=== PATIENT | male | born 1975 | race Caucasian/White ===

== ENCOUNTER → 2016-11-23 | Outpatient (CLI) | payer MEDICAID ==
[~2016-11-23] MED LIST: ALPRAZOLAM; AMOXICILLIN 8751 TAB PO; CARAFATE 1GM1 G PO; FERROUS SULFATE27 MG PO; FUROSEMIDE; LORTAB 10/500 51 TAB PO; LORTAB 5/500 501 TAB PO; MULTIPLE VITAMI1 TAB PO; MVI; NO HOME MEDICATIONS; OXYCODONE HCL5 MG PO; PEPCID 20MG TAB20 MG PO; PERCOCET 325 MG1 TA2 PO; PERCOCET 325 MG1 TA3 PO; PHENERGAN 25 TA25 MG PO; PRILOSEC 20MG20 MG PO; PROTONIX 40MG T40 MG PO; ROXICODONE 55 MG/TAB PO; SOMA 350MG350 MG/TAB PO; TYLENOL 325MG325 MG PO; ZANTAC 7575 MG PO; ZOFRAN 4MG T4 MG/TAB PO; antiinflammatory
== END ==
LOC: COL.RAD 07:30
DX: R10.13 Epigastric pain (principal); K44.9 Diaphragmatic hernia without obstruction or gangrene; Z90.49 Acquired absence of other specified parts of digestive tract
CPT/HCPCS: A9585

== ENCOUNTER → 2017-02-07 | Outpatient (CLI) | payer MEDICAID | LOC: MHCPAIN 11:18 | DX: G89.29 Other chronic pain (principal); M79.2 Neuralgia and neuritis, unspecified; R10.9 Unspecified abdominal pain | CPT/HCPCS: G0463 ==

== ENCOUNTER → 2017-04-09 | Outpatient (CLI) | payer MEDICAID | LOC: MHCPAIN 08:00 | DX: G89.29 Other chronic pain (principal); R10.9 Unspecified abdominal pain; M79.2 Neuralgia and neuritis, unspecified; Z98.84 Bariatric surgery status | CPT/HCPCS: G0463 ==

== ENCOUNTER → 2017-07-24 | Outpatient (CLI) | payer MEDICAID | LOC: MHCPAIN 08:55 | DX: G89.29 Other chronic pain (principal); M79.2 Neuralgia and neuritis, unspecified; M79.1 Myalgia; R10.9 Unspecified abdominal pain; F17.220 Nicotine dependence, chewing tobacco, uncomplicated | CPT/HCPCS: G0463 ==

== ENCOUNTER → 2017-11-05 | Outpatient (CLI) | payer MEDICAID | LOC: MHCPAIN 08:55 | DX: G89.29 Other chronic pain (principal); M79.2 Neuralgia and neuritis, unspecified; M79.1 Myalgia | CPT/HCPCS: G0463 ==

== ENCOUNTER → 2018-02-04 | Outpatient (CLI) | payer MEDICAID | LOC: MHCPAIN 09:01 | DX: G89.29 Other chronic pain (principal); M79.2 Neuralgia and neuritis, unspecified; M79.1 Myalgia | CPT/HCPCS: G0463 ==

== ENCOUNTER → 2018-08-07 | Outpatient (CLI) | payer MEDICAID, MEDICARE | LOC: MHCPAIN 08:15 | DX: G89.29 Other chronic pain (principal); M79.2 Neuralgia and neuritis, unspecified; R10.817 Generalized abdominal tenderness | CPT/HCPCS: G0463 ==

== ENCOUNTER 2018-11-18 23:30 | Inpatient (IN) | payer MEDICARE, MEDICAID ==
[~2018-11-18] VITALS: Ht 180.3 cm; Wt 154.9 kg
[2018-11-19] VITALS (348 sets, daily range): BP systolic 119–138; BP diastolic 77–94; PULSE 94–110; TEMP 98.8–100.4; O2SAT 63–100
--- NOTE | 2018-11-19 01:02 | NUR ---
PATIENT WAS EXPERIENCING SEVER RESPIRATORY DISTRESS AT THE TIME OF MY ASSESSMENT SO I WAS UNABLE TO ASK PATIENT ALL THE ADMISSION QUESTIONS. PATIENTS RESPIRATION RATE SHOT UP TO THE 40'S WHEN ATTEMPTING TO ASK QUESTIONS. WILL COME BACK AT A LATER TIME ONCE PATIENTS RESPIRATION RATE IS UNDER CONTROL AND HE IS ABLE TO COMMUNICATE WITHOUT BEING IN STRESS.
[2018-11-19] MEDS ORDERED: VITAMIN B125000 MCG PO (01:57)
[2018-11-19] MEDS ORDERED: NATURAL IRON65 MG PO (01:57)
[2018-11-19] MEDS ORDERED: MULTIPLE VITAMI1 CAP PO (01:58)
[2018-11-19] MEDS ORDERED: NEURONTIN800 MG/TAB PO ×2 (01:58)
[2018-11-19] MEDS ORDERED: ZESTRIL 20MG TA20 MG PO (01:58)
[2018-11-19] MEDS ORDERED: PRIL40 PO (01:59)
[2018-11-19] MEDS ORDERED: CARAFATE 1GM1 G PO (01:59)
[2018-11-19] MEDS ORDERED: LIORESAL 1010 MG/TAB PO (01:59)
[2018-11-19] MEDS ORDERED: ZANTAC 150MG T150 MG PO (02:00)
[2018-11-19] MEDS ORDERED: REQUIP 1MG T1 MG/TAB PO (02:00)
[2018-11-19] MEDS ORDERED: RESTORIL 1515 MG/CAP PO (02:00)
[2018-11-19 02:10] LABS: ARTERIAL BLD GAS O2 SATURATION 99.4 % (92-100); ARTERIAL BLOOD GAS BASE EXCESS -3.3 (-2-2); ARTERIAL BLOOD GAS HCO3 23.5 meq/L (22-26); ARTERIAL BLOOD GAS PCO2 48.8 mmHg (35-45)
[2018-11-19 02:11] LABS: ARTERIAL BLOOD GAS PO2 300.8 mmHg (80-100)
[2018-11-19 03:17] LABS: HEMATOCRIT 40.6 % (42.0-52.0); MEAN CELL VOLUME 105 fl (80.0-100.0); MEAN CORPUSCULAR HEMOGLOBIN 34 pg (27.0-31.0); MEAN CORPUSCULAR HGB CONC 32 g/dl (33.0-37.0); MEAN PLATELET VOLUME 9.2 fl (7.4-10.4); PLATELET COUNT 252 K/mm3 (130-400); RED BLOOD COUNT 3.87 M/mm3 (4.20-5.60); REDCELL DISTRIBUTION WIDTH-CV 12.4 % (11.5-14.5)
[2018-11-19 03:31] LABS: ALANINE AMINOTRANSFERASE 8 U/L (21-72); ALBUMIN 3.6 gm/dL (3.5-5.0); ALKALINE PHOSPHATASE 72 U/L (50-136); ANION GAP 8 mmol/L (7-16); AST,SGOT 19 U/L (15-37); BILIRUBIN,TOTAL 0.7 mg/dL (0.0-1.0); BLOOD UREA NITROGEN 11 mg/dL (9-20); CALCIUM 8.5 mg/dL (8.4-10.2); CARBON DIOXIDE 22 mmol/L (22-30); CHLORIDE 106 mmol/L (98-107); CREATININE, serum 0.64 (0.66-1.25); GLUCOSE 130 mg/dL (74-106); MAGNESIUM 1.7 mg/dL (1.6-2.3); SODIUM 136 mmol/L (137-145); TOTAL PROTEIN 6.8 gm/dL (6.4-8.2)
--- NOTE | 2018-11-19 03:38 | NUR ---
CALLED PATIENTS AND ASKED IF SHE WOULD BRING THE CD OF THE PATIENTS CT SCAN THAT WAS PERFORMED AT [facility].
[2018-11-19 03:43] LABS: TROPONIN-I < 0.012 ng/mL (0.000-0.035)
[2018-11-19 03:45] LABS: BAND 23 % (0-10); HYPOCHROMIA 1+; LYMPHOCYTE 5 % (20.0-51.0); NEUTROPHILS 66 % (42.0-75.2); PLATELET ESTIMATE NORMAL (NORMAL)
[2018-11-19 03:47] LABS: TEAR DROP CELLS 1+
[2018-11-19 06:09] LABS: ARTERIAL BLD GAS O2 SATURATION 97.9 % (92-100); ARTERIAL BLD GAS TCO2 CT 22.7; ARTERIAL BLOOD GAS BASE EXCESS -4.9 (-2-2); ARTERIAL BLOOD GAS HCO3 21.4 meq/L (22-26); ARTERIAL BLOOD GAS PCO2 44.2 mmHg (35-45); ARTERIAL BLOOD GAS PO2 106.4 mmHg (80-100)
--- NOTE | 2018-11-19 06:31 | NUR ---
TRIED TO HAVE PATIENT URINATE IN THE URINAL. PATIENT WAS UNABLE TO AT THIS TIME. TOLD PATIENT WE WOULD TRY AGAIN IN AN HOUR OR TWO AND THEN IF HE STILL WAS UNABLE TO WE WOULD TRY TO DO A STRAIGHT CATH TO COLLECT URINE TO SEND DOWN FOR THE UA.
--- NOTE | 2018-11-19 07:00 | NUR ---
Bedside shift report received from TENZIN Vergara. Patient is awake, alert, sitting up in bed. Patient is currently on BiPAP and tolerating well. Patient complains of ride sided thoracic pain located under the armpit along the lower ribcage area. Patient is stable with no other complaints or concerns at this time. Full assessment completed and documented. Call light placed within reach. Bed in lowest position. Personal items at bedside within reach.
--- NOTE | 2018-11-19 07:19 | NUR ---
GAVE REPORT TO TENZIN PERAZA.
--- NOTE | 2018-11-19 09:00 | NUR ---
Dr. Oreilly at bedside and assessing patient's RLL via ultrasound for possible thoracentesis.
--- NOTE | 2018-11-19 09:20 | NUR ---
Patient transferred to CT via bed by Isabel RN and Matteo RT with no complications. Patient transferred to CT on BiPAP and bedside monitor. On arrival, patient is successfully transferred to CT stretcher, but then becomes nauseous and attempts to vomit. Dr. Oreilly is notified of patient's nausea and order for Zofran given via telephone. Zofran administered per physicians order. CT scan successfully completed. Patient is transferred back to ICU bed 7 with no complications.
[2018-11-19 10:12] LABS: COLLECTION METHOD CLEAN CATCH
[2018-11-19 10:20] LABS: MUCOUS Present /lpf; PH 5 (5-8); URINE APPEARANCE Hazy; URINE BACTERIA Rare /hpf; URINE BILIRUBIN Negative (NEGATIVE); URINE BLOOD Negative (NEGATIVE); URINE COLOR Yellow; URINE GLUCOSE Negative (NEGATIVE); URINE KETONE Negative (NEGATIVE); URINE LEUKOCYTE ESTERASE 1+ (NEGATIVE); URINE NITRATE Negative (NEGATIVE); URINE PROTEIN(semi-quant) Negative (NEGATIVE); URINE RBC 0-2 /hpf; URINE UROBILINOGEN Negative (NEGATIVE)
[2018-11-19 10:42] LABS: INR 1.2 (0.8-3.0); PROTHROMBIN TIME 13.6 SECONDS (9.7-12.8)
[2018-11-19 10:49] LABS: TRICYCLIC ANTIDEPRESS URINE NEGATIVE
--- NOTE | 2018-11-19 11:00 | NUR ---
Incentive spirometry placed at bedside per Dr. Oreilly's orders.
--- NOTE | 2018-11-19 14:35 | NUR ---
Patient disconnected from IV fluids and COMMERCIAL REAL ESTATE SALES MANAGER pump at this time to go to OR. Larissa from OR at bedside to retrieve patient. Patient is disconnected from bedside monitor. Signed informed consent placed on the front of the chart and chart on patient's bed. At this time Larissa successfully transports patient to OR with no complications. Patient's , Emily, is notified of patient's transfer to OR at this time.
--- NOTE | 2018-11-19 16:54 | NUR ---
PATIENT PLACED ON BIPAP IN PACU. 21/02 70% RR 32 SPO2 97%
--- NOTE | 2018-11-19 17:38 | NUR ---
Patient returned from OR by 2 RNs with no complications. Patient hooked up to ICU monitor. Vital signs stable, patient in no apparent distress. There is a chest tube now present to right side with serosanguinous drainage in atrium. Chest tube site assessed, dressing is clean, dry, and intact. COMPOUND COATING MACHINE OFFBEARER pump restarted per physician orders. Call light placed within reach. Bed lowered to lowest position. Patient does not have any complaints or concerns at this time.
--- NOTE | 2018-11-19 19:30 | NUR ---
Bedside shift report given to TENZIN Vergara. Patient is sitting in bed with no complaints or concerns at this time. Patient has his MANAGER INTERN pump and call light within reach. All personal items also within reach. MANAGER INTERN pump assessed and reviewed against MAR with TENZIN Vergara at this time. Bed in lowest position. Patient's at bedside during report.
--- NOTE | 2018-11-19 19:40 | NUR ---
RECEIVED REPORT FROM TENZIN PERAZA. PATIENT AND PARTICIPATED IN BEDSIDE REPORT. MEDICATIONS, LINEES, AND TUBES VARIFIED. WILL CONTINUE TO MONITOR PATIENT THROUGHT THE SHIFT.
[2018-11-19 22:08] LABS: TOTAL PROTEIN,PLEURAL FLUID 5.2 gm/dL
[2018-11-20] VITALS (803 sets, daily range): BP systolic 101–119; BP diastolic 55–81; PULSE 75–118; TEMP 97.5–102; O2SAT 62–100
[2018-11-20 05:46] LABS: BASO # 0.1 (0.0-0.2); BASO % 0.2 % (0.0-2.0); GRAN # 21.7 (1.4-6.5); GRAN % 86.8 % (42.2-75.2); HEMOGLOBIN 11.2 g/dl (13.5-18.0); LYMPH # 1.5 (1.2-3.4); LYMPH % 5.9 % (20.0-51.0); MEAN CELL VOLUME 109 fl (80.0-100.0); MEAN CORPUSCULAR HEMOGLOBIN 34 pg (27.0-31.0); MEAN CORPUSCULAR HGB CONC 31 g/dl (33.0-37.0); MEAN PLATELET VOLUME 9.1 fl (7.4-10.4); MONO # 1.5 (0.1-0.6); MONO % 6.1 % (1.7-9.3); PLATELET COUNT 219 K/mm3 (130-400); RED BLOOD COUNT 3.31 M/mm3 (4.20-5.60); REDCELL DISTRIBUTION WIDTH-CV 12.5 % (11.5-14.5)
[2018-11-20 05:49] LABS: HEMATOCRIT 36.1 % (42.0-52.0)
--- NOTE | 2018-11-20 05:54 | NUR ---
CALLED EICU AND REPORTED THE CRITICAL WBC COUNT OF 24.9 TO NURSE CHOUDHARY.
[2018-11-20 05:56] LABS: ALANINE AMINOTRANSFERASE < 6 U/L (21-72); ALBUMIN 3.2 gm/dL (3.5-5.0); ALKALINE PHOSPHATASE 69 U/L (50-136); ANION GAP 9 mmol/L (7-16); AST,SGOT 16 U/L (15-37); BILIRUBIN,TOTAL 0.5 mg/dL (0.0-1.0); BLOOD UREA NITROGEN 20 mg/dL (9-20); CALCIUM 8.4 mg/dL (8.4-10.2); CARBON DIOXIDE 21 mmol/L (22-30); CHLORIDE 105 mmol/L (98-107); CREATININE, serum 1.04 (0.66-1.25); GLUCOSE 144 mg/dL (74-106); SODIUM 136 mmol/L (137-145); TOTAL PROTEIN 6.4 gm/dL (6.4-8.2)
--- NOTE | 2018-11-20 08:34 | NUR ---
gave report to bhumika bañuelos.
--- NOTE | 2018-11-20 10:42 | NUR ---
SW met with patient to discuss discharge planning. Patient lives independently at home with his and plans to return there upon discharge. Patient goes to [facility] in [place] for primary care and he obtains prescriptions from [facility] in . Patient uses a CPAP at home but no other DME is reported. Patient also does not use any home health services. Patient is interested completing a DPOA-HC. SW reported that she can provide those forms, but patient would like to speak with his before signing anything. SW will continue to follow to assist with discharge needs.
--- NOTE | 2018-11-20 15:30 | NUR ---
Pt Resting in bed, repositioning independenlty, VSS, remains on PAPERHANGER PIPE pump, but states he has not been using it much due to a deacrease in pain. LR 500 mls given this AM. Pt witfe at bedside. Pt able to eat some breakfast. CT remains in place draining serous liquid. No airleak noted. ID consulted and called today. Will continue to monitor and update providers as needed.
--- NOTE | 2018-11-20 18:38 | NUR ---
After Hours TOP STITCHER Angela, called re; pt temp 101.8, Rn wanting tylenol. TOP STITCHER wants to review pt labs and assess need. Will continue to monitor.
--- NOTE | 2018-11-20 19:35 | NUR ---
Bedside report received from TENZIN Huston. Chest tube site assessed. All lines and medications reviewed.
--- NOTE | 2018-11-20 20:00 | NUR ---
Assessment complete. Patient is awake watching TV. He is alert and oriented x4. Patient's HR is tachycardic into the 130's. Patient has been refusing to push the button for his SHIRRING MACHINE OPERATOR pump. Educated patient that we monitor how much medication he is getting and he will gradually be weaned off of it, so addiction is not a concern right now, but his heart rate is. Spoke with STEVE Miller about his pain and she stated that if he does not push the button himself, we will need to start him on a basal rate. Explained this to the patient. He states he will try to use the button more when he is in pain. Assessment reveals coarse sounds in the right lung with insp/exsp wheezes. Left lung is clear. Bases bilaterally are diminished. HR is tachycardic, which decreases when resting. Bowel sounds are active. Assisted the patient to stand to urinate. Patient had urinated, but dropped the urinal, so was unable to get a number for output; charted as unmeasured void. Patient's chest tube site is clear. Dressing and tape are intact. Tube is clear of kinks. Drainage is serosanguinous with some small clots. Patient has no further needs at this time. Will continue to monitor. Call light within reach.
[2018-11-21] VITALS (931 sets, daily range): BP systolic 105–125; BP diastolic 61–100; PULSE 80–101; TEMP 98.1–101.1; O2SAT 74–100
--- NOTE | 2018-11-21 | NUR ---
Patient asleep at this time. Awakens to name. Patient is on BiPAP. RT Matt had turned his FIO2 up to 45% due to frequent de-sats into the low 80's from his snoring. Assessment complete. Patient's right upper and middle lobes of the lung have expiratory wheezes with all right garcia also being coarse. Left lung remains clear and both lungs have diminished bases. Patient's tachycardia has improved since he started using his MANAGER MOTOR more. All other findings remain the same. Patient is only having mild pain in that right side. No further needs at this time. Will continue to monitor. Call light within reach.
--- NOTE | 2018-11-21 04:00 | NUR ---
Assessment complete. Patient is resting on the BiPAP. Patient is very tired, but arousable. Patient does not stay awake for long, but does follow commands, but quickly falls asleep again. Assessment reveals coarse lung sounds in the right lung, diminished bases bilaterally, and left lung clear. All other findings remain the same as previous exam. Only complains of mild pain at the chest tube site. No further needs at this time. Will continue to monitor. Call light within reach.
--- NOTE | 2018-11-21 04:45 | NUR ---
Dressing change performed at Chest tube site.
[2018-11-21 05:14] LABS: BASO % 0.2 % (0.0-2.0); EOS # 0.1 (0.0-0.7); GRAN # 10.2 (1.4-6.5); HEMOGLOBIN 10.2 g/dl (13.5-18.0); LYMPH # 1.3 (1.2-3.4); LYMPH % 10.1 % (20.0-51.0); MEAN CELL VOLUME 110 fl (80.0-100.0); MEAN CORPUSCULAR HEMOGLOBIN 33 pg (27.0-31.0); MEAN CORPUSCULAR HGB CONC 30 g/dl (33.0-37.0); MEAN PLATELET VOLUME 9.1 fl (7.4-10.4); MONO # 1.2 (0.1-0.6); PLATELET COUNT 235 K/mm3 (130-400); RED BLOOD COUNT 3.07 M/mm3 (4.20-5.60); REDCELL DISTRIBUTION WIDTH-CV 12.5 % (11.5-14.5)
[2018-11-21 05:16] LABS: HEMATOCRIT 33.7 % (42.0-52.0)
[2018-11-21 05:34] LABS: CALCIUM 8.6 mg/dL (8.4-10.2); CREATININE, serum 1.07 (0.66-1.25); POTASSIUM 4.9 mmol/L (3.4-5.0)
--- NOTE | 2018-11-21 06:45 | NUR ---
Dr. Oreilly here to see patient at this time. Patient is lethargic, opens eyes and answers simple questions, but quickly falls back asleep.
--- NOTE | 2018-11-21 07:12 | NUR ---
Bedside report given to TENZIN Britt. All lines and tubes reviewed. Transfer of care at this time.
--- NOTE | 2018-11-21 07:12 | NUR ---
Bedside report recieved from TENZIN Arvizu. Patient chest tube patent to 20cm suction without leak noted in water seal. Dressing CDI with positive serosanguinous drainage noted in tubing. CATHERINE PICC with LR infusing at 100ml/hr and morphine BOG CUTTER y-sited. BOG CUTTER settings reviewed. LAC peripheral site locked and uncomplicated. Patient with urine saturated chucks. BiPap in place as ordered. Patient squirming in bed and reports urgency to urinate with retention. See physisian notification and corresponding interventions. Bed change completed at this time. Patient changed to NC O2 after AM cares. Bed left in low and locked position, rails up x3, bed alarm armed, call light and BOG CUTTER button within reach. Patient denies pain at this time. Care assumed.
--- NOTE | 2018-11-21 09:40 | NUR ---
Dr. Hurtado rounds at this time. Orders as entered CPOE. POC discussed with patient and to include remaining in ICU today secondary to fevers over prior 24 hour period. Care ongoing.
--- NOTE | 2018-11-21 14:25 | NUR ---
1425: Patient with tachycardia noted on monitor. Upon entering patient room assessment includes patient minimally and inconsistently responsive to verbal stimuli, consistently localizes pain and says "Ow" and "what" when sternal rub applied, JASKARAN, inconsistent response to command obidience with appropriate response 2/4 attempts, chest tube to suction with minimal fluctuations noted to water seal chamber, chest tube without kinks or twists and positive serous output noted, NC O2 removed and BiPap replaced and previous settings, Elma WILSON called and request made and granted for ABG, RT notified of new order. 1430: This nurse verbally prompts patient to answer with no response noted. This RN states I will need to rub your chest again to see if you respond (sternal rub) patient opens eyes and says "what?". However, beyond squeezing hands when prompted patient does not follow commands or answer questions when prompted. 1437: Reji, RT at bedside for ABG. She tells patient to expect a poke to right wrist. Prior to punture patient retracts arm. This RN holds for ABG draw. Patient is uncooperative. 1451: STEVE Wills notified of normal ABG results. No further orders recieved. Will keep BiPap in place. Care ongoing.
--- NOTE | 2018-11-21 14:30 | NUR ---
Dr. Monzon rounds on patient at this time. VORB to put chest tube to water seal.
[2018-11-21 14:50] LABS: ARTERIAL BLOOD GAS HCO3 23.3 meq/L (22-26); ARTERIAL BLOOD GAS PCO2 41.3 mmHg (35-45); ARTERIAL BLOOD GAS PO2 86.3 mmHg (80-100); ARTERIAL BLOOD GAS pH 7.37 (7.35-7.45)
[2018-11-21 14:51] LABS: ARTERIAL BLD GAS O2 SATURATION 96.4 % (92-100); ARTERIAL BLOOD GAS BASE EXCESS -1.9 (-2-2)
--- NOTE | 2018-11-21 15:02 | NUR ---
Dr. Hooks calls and is provided update. No new orders recieved.
--- NOTE | 2018-11-21 16:38 | NUR ---
Provider updated to continued mental status changes to include: Patient opens eyes to loud verbal stimuli and painful stimuli, no appropriate command follows, when asked to sip water for meds patient chews on straw and blows bubbles in cup. Percieved stregth equal bilaterally. JASKARAN. VSS.Request made for provider to re-assess patient and consider imaging of head and/or psych consult. STAFF NUCLEAR WEAPONS OFFICER states she will be down shortly.
--- NOTE | 2018-11-21 16:59 | NUR ---
Dr. Hurtado at bedside to re-assess patient. Patient responsive at this time to verbal stimulus by MD. Accurately reports home address when prompted, re-states home address when asked both birthday and current year. Neuro checks ordered Q2H. Care ongoing.
--- NOTE | 2018-11-21 17:25 | NUR ---
Patient transported to CT by this RN on transport monitor and 6LO2 per NC in place. CT of head completed without complication.
--- NOTE | 2018-11-21 17:50 | NUR ---
Patient returned to ICU [address] of head as ordered. Returned to in room monitor. Temp 100.5 VSS otherwise. Care ongoing.
--- NOTE | 2018-11-21 19:15 | NUR ---
Report provided to TENZIN Arvizu. Chest tube, da silva, and IV access all assessed and without complication. Care turned over.
--- NOTE | 2018-11-21 19:15 | NUR ---
Bedside report received from TENZIN Britt. All lines and tubes reviewed. Chest tube dressing remains intact. Transfer of care at this time.
--- NOTE | 2018-11-21 20:00 | NUR ---
Assessment complete. Patient resting in bed on BiPAP. No signs of distress. Patient opens eyes to name, but does not look towards sound or make eye contact, patient just stares straight ahead. Patient does follow commands to squeeze his hands, asset accountant are strong and equal. He does not follow multiple commands given. Patient is unable to answer any questions about where he is or other orientation questions, he closes his eyes and doesnt respond. Assessment reveals coarse sounds in the right lung with clear left lung and diminished bases bilaterally. HR rhythm regular and normal sounds heard. Bowel sounds are active. All other findings remain WNL. Chest tube dressing remains clean and dry. There is a small amount of serous fluid in the tubing. When asked if he is pain, patient just states "no" without opening his eyes. Patient is not currently showing any signs of pain. No further needs at this time. Will continue to monitor. Call light within reach.
--- NOTE | 2018-11-21 20:20 | NUR ---
Patient woken up to take tylenol at this time for fever of 101.1. BiPAP mask removed and patient is alert and awake, but does not make eye contact or look at this nurse. Patient takes a sip of water, then pills with lots of coaxing for him to open his mouth. Needs constant remainders of what he is doing. Patient swallows pills but then coughs afterwards. Stayed with patient for several minutes afterwards to ensure he did swallow pills. BiPAP mask replaced. Will notify [facility] that patient will not be able to take all of his other oral PM meds for risk of aspiration. Will see if alternate routes can be taken.
[2018-11-22] VITALS (1049 sets, daily range): BP systolic 138–170; BP diastolic 86–98; PULSE 83–103; TEMP 97.9–99.6; O2SAT 82–100
--- NOTE | 2018-11-22 | NUR ---
Assessment complete. Patient asleep at this time on BiPAP. Awakens to name. Follows commands to squeeze hands, but quickly falls asleep again. Assessment reveals no changes from previous exam. Patient does not stay awake long enough to answer questions. Patient still does not make eye contact. Patient states he is not having any pain. No further needs at this time. Will continue to monitor. Call light within reach.
--- NOTE | 2018-11-22 04:00 | NUR ---
Patient is much more alert than he has been previously in the shift. Patient does not appear to be in any distress, but is coughing up more sputum. Emesis bag provided for sputum. Patient does make eye contact now. Patient now rates pain a 7/10. Reinforced teaching of pushing the DOOR PATCHER button when in pain. Made sure patient knows where his button is. Assessment complete. No physical changes from previous exam. Vitals remain stable. No further needs at this time. Patient remains on BiPAP. Will continue to monitor. Call light within reach.
--- NOTE | 2018-11-22 05:08 | NUR ---
Patient starts screaming in frustration at this time. He tears off BiPAP mask and throws it across the room. Patient placed back on NC at 4L with ETCO2. Patient is very alert now. Patient does not know where he is, when asked a question he really tries to search for the words to answer, but cant come up with them and gets very frustrated. Stayed with the patient until he calmed down. Reinforced teaching about VEST BACKER pump button. He confirms understanding. Will continue to monitor.
[2018-11-22 05:10] LABS: BASO % 0.3 % (0.0-2.0); EOS # 0.1 (0.0-0.7); EOS % 0.5 % (0-4.0); GRAN % 79.2 % (42.2-75.2); HEMOGLOBIN 10.4 g/dl (13.5-18.0); LYMPH # 1.2 (1.2-3.4); LYMPH % 10.5 % (20.0-51.0); MEAN CELL VOLUME 106 fl (80.0-100.0); MEAN CORPUSCULAR HEMOGLOBIN 34 pg (27.0-31.0); MEAN CORPUSCULAR HGB CONC 32 g/dl (33.0-37.0); MONO % 8.8 % (1.7-9.3); PLATELET COUNT 210 K/mm3 (130-400); RED BLOOD COUNT 3.09 M/mm3 (4.20-5.60); REDCELL DISTRIBUTION WIDTH-CV 12.1 % (11.5-14.5)
[2018-11-22 05:11] LABS: HEMATOCRIT 32.7 % (42.0-52.0)
[2018-11-22 05:24] LABS: CALCIUM 8.7 mg/dL (8.4-10.2); CREATININE, serum 0.79 (0.66-1.25); MAGNESIUM 1.9 mg/dL (1.6-2.3); POTASSIUM 4.1 mmol/L (3.4-5.0)
--- NOTE | 2018-11-22 06:00 | NUR ---
Patient remains alert. Still not oriented, tries to search for words, but gets frustrated. Patient has been pushing his BRAILLE PROOFREADER button. No further needs at this time.
--- NOTE | 2018-11-22 07:15 | NUR ---
Bedside report given to TENZIN Shipley. All lines and tubes reviewed. No further needs. Transfer of care at this time.
--- NOTE | 2018-11-22 12:07 | NUR ---
First visit from the motorcycle tester. No needs right now.
--- NOTE | 2018-11-22 14:15 | NUR ---
Dr. Monzon here to see patient. Ok to removed chest tube. Sutures out and CT removed by Dr. Monzon without incident. Vaseline gauze and 4x4 dressing applied over the insertion site. Patient tolerated well.
--- NOTE | 2018-11-22 19:20 | NUR ---
Bedside report received from Violetta King RN. Pt resting in chair with spouse and daughter at bedside.
--- NOTE | 2018-11-22 19:38 | NUR ---
Bedside report given to Brisa DAVE. Patient sitting up in chair with at bedside, participate in report.
--- NOTE | 2018-11-22 20:00 | NUR ---
Pt assessment complete. Pt continues to rest in chair with family at bedside. Reports pain in right side and chronic pain as different although rated the same at this time. Per pts spouse clarification was received for numeric rating for each type of pain. Pts spouse has been noted handing the IS to pt and instructing pt to use so far this shift. Pt has corrective eye wear on. Speech is clear with orientation noted to all questions.
--- NOTE | 2018-11-22 20:09 | NUR ---
PT NO LONGER ON JAVA SPRING DEVELOPER PUMP THEREFORE ETCO2 CHECK AND CHARGE HAVE BEEN COMPLETED OUT. NO DISTRESS NOTED AT THIS TIME AND ON RA.
--- NOTE | 2018-11-22 22:45 | NUR ---
Call to RT due to pt sleeping with dropping sats. Will come and put on Bipap.
--- NOTE | 2018-11-22 23:45 | NUR ---
Report provided to Robel DAVE.
[2018-11-23] VITALS (463 sets, daily range): BP systolic 122–157; BP diastolic 83–94; PULSE 76–124; TEMP 97.5–99.6; O2SAT 78–99
[2018-11-23 05:45] LABS: BASO % 0.2 % (0.0-2.0); EOS # 0.2 (0.0-0.7); EOS % 2.2 % (0-4.0); GRAN # 7.4 (1.4-6.5); GRAN % 72.9 % (42.2-75.2); LYMPH # 1.2 (1.2-3.4); LYMPH % 12.2 % (20.0-51.0); MEAN CELL VOLUME 109 fl (80.0-100.0); MEAN CORPUSCULAR HGB CONC 31 g/dl (33.0-37.0); MEAN PLATELET VOLUME 9.2 fl (7.4-10.4); MONO # 1.2 (0.1-0.6); MONO % 11.6 % (1.7-9.3); PLATELET COUNT 202 K/mm3 (130-400)
[2018-11-23 05:46] LABS: HEMATOCRIT 28.2 % (42.0-52.0); HEMOGLOBIN 8.8 g/dl (13.5-18.0); MEAN CORPUSCULAR HEMOGLOBIN 34 pg (27.0-31.0)
[2018-11-23 05:52] LABS: ALBUMIN 2.4 gm/dL (3.5-5.0); BILIRUBIN,TOTAL 0.3 mg/dL (0.0-1.0); CALCIUM 8.3 mg/dL (8.4-10.2); CREATININE, serum 0.74 (0.66-1.25); POTASSIUM 4.1 mmol/L (3.4-5.0); TOTAL PROTEIN 5.2 gm/dL (6.4-8.2)
--- NOTE | 2018-11-23 06:17 | NUR ---
Pt resting in bed, reports pain at 3/10 and states level is acceptable. Refuses pain meds. Pt on Bipap throughout night and tolerated well. Right lung continues to sound diminished but pt denies any shortness of breath. VSS. No fever noted on this shift and pt remains A/O x 3. Will continue to monitor and update providers as needed.
--- NOTE | 2018-11-23 15:48 | NUR ---
Patient up in chair, asked if he would like to freshen up. States wants to shower when he gets up to his room, but would take some warm wipes to freshen up. Able to do most himself, back washed by RN. Redressed and settled into chair. Call light at reach
--- NOTE | 2018-11-23 16:42 | NUR ---
Report called to Safia DAVE
--- NOTE | 2018-11-23 17:00 | NUR ---
Received report from Violetta DAVE.
--- NOTE | 2018-11-23 17:15 | NUR ---
Transferred to room 309 via wheel chair. and kids there when we arrived. Safia DAVE and Nasreen GARCIA notified of arrival. Call light in reach and bed down.
--- NOTE | 2018-11-23 17:30 | NUR ---
Pt in bed, breathing even and unlabored. and kids are at bedside. Denies any shortness of breath or pain at this time. Dressing to back clean dry and intact. Breath sounds clear, abdomen obsese, soft and audible bowel sounds in all quadrants. Radial pulses +2, no edema noted. Will continue to monitor. Call light in reach.
--- NOTE | 2018-11-23 20:20 | NUR ---
Completed assessment and medication administration; PT tolerated all cares well; Minimal pain complaints in back of head treated with PO PRN Tylenol; No further assessed or verbalized concerns at time of assessment or prior to exit; PT reported minimal SOA with AMB; Continues RA with SPO2 in mid 90s; PT able to return to comfortable position in bed with personal items and call light within reach; NS running to RUE PICC at 100ml/hr with piggybag of Vanco running at 250ml/hr; Will continue to monitor. CDA
[2018-11-24] VITALS (7 sets, daily range): BP systolic 135–174; BP diastolic 76–95; PULSE 80–105; TEMP 97.8–99.4
--- NOTE | 2018-11-24 02:27 | NUR ---
PT resting intermittently in bed with personal items and call light within reach; No acute assessed or verbalized concerns at times of rounds; PT maintained a comfortable position in bed; NS running at 100ml/hr; Will continue to monitor. RT verbalized they will implement the use of a CPAP per home compliance use. CDA
[2018-11-24 06:27] LABS: BASO % 0.3 % (0.0-2.0); EOS # 0.2 (0.0-0.7); EOS % 1.9 % (0-4.0); GRAN # 8.4 (1.4-6.5); GRAN % 74.2 % (42.2-75.2); LYMPH # 1.4 (1.2-3.4); LYMPH % 12.6 % (20.0-51.0); MEAN CELL VOLUME 105 fl (80.0-100.0); MEAN CORPUSCULAR HGB CONC 32 g/dl (33.0-37.0); MEAN PLATELET VOLUME 9.3 fl (7.4-10.4); MONO # 1.1 (0.1-0.6); MONO % 9.9 % (1.7-9.3); PLATELET COUNT 200 K/mm3 (130-400); RED BLOOD COUNT 2.79 M/mm3 (4.20-5.60); REDCELL DISTRIBUTION WIDTH-CV 11.9 % (11.5-14.5)
--- NOTE | 2018-11-24 06:40 | NUR ---
Report given to TENZIN Barclay; No significant changes or concerns at time of shift change. CDA
[2018-11-24 06:41] LABS: CALCIUM 8.4 mg/dL (8.4-10.2); CREATININE, serum 0.86 (0.66-1.25); MAGNESIUM 1.8 mg/dL (1.6-2.3); POTASSIUM 3.2 mmol/L (3.4-5.0)
[2018-11-24 07:51] LABS: HEMATOCRIT 29.4 % (42.0-52.0); HEMOGLOBIN 9.5 g/dl (13.5-18.0); MEAN CORPUSCULAR HEMOGLOBIN 34 pg (27.0-31.0)
--- NOTE | 2018-11-24 07:57 | NUR ---
Pt alert and oriented. Pt right upper PICC no redness or infiltration noted. Vancomycin and NS running at this time. Pt efra pain or SOB. Pt ate 75% of breakfast. Pt has call light in reach and denies needs at this time.
--- NOTE | 2018-11-24 12:28 | NUR ---
Pt alert and oriented. Spouse and children here to visit patient. Pt wants to shower PICC and chest tube sites covered and encouraged pt not to run water directly over them. Pt has spouse assist in shower. Pt BP increased this am. Pt fluids discontinued and PRN Hydralazine ordered if needed for SBP above 180.
--- NOTE | 2018-11-24 18:08 | NUR ---
Pt stable this shift. Pt had shower this afternoon. Pt started on PO Abx without issue. Pt has chronic pain / and denies need for pain medication or intervention at this time. Pt denies SOB or chest pain. Pt PICC remains free of complications. Pt has call light in reach and denies needs.
--- NOTE | 2018-11-24 19:25 | NUR ---
report given to Padma DAVE.
--- NOTE | 2018-11-24 20:00 | NUR ---
Shift assessment complete. Pt resting in bed, awake, a&o, cooperative c cares. Pt c/o pain to R lat chest, PRN APAP admin per pt req. Denies any other c/o. Incision noted to R lat chest from d/c'd chest tube; gauze dressing C/D/I et aimee intact. PICC noted to R upper arm; patent c good blood return. Pt denies any other c/o. Call light in reach, will continue to monitor.
[2018-11-25 03:14] VITALS: BP 140/82; PULSE 85; TEMP 98.7
[2018-11-25 06:24] LABS: MEAN CELL VOLUME 105 fl (80.0-100.0); MEAN CORPUSCULAR HGB CONC 31 g/dl (33.0-37.0); MEAN PLATELET VOLUME 9.6 fl (7.4-10.4); PLATELET COUNT 215 K/mm3 (130-400); RED BLOOD COUNT 2.76 M/mm3 (4.20-5.60)
[2018-11-25 06:29] LABS: HEMOGLOBIN 9.1 g/dl (13.5-18.0); MEAN CORPUSCULAR HEMOGLOBIN 33 pg (27.0-31.0)
[2018-11-25 06:34] LABS: CALCIUM 8.2 mg/dL (8.4-10.2); CREATININE, serum 0.92 (0.66-1.25); POTASSIUM 3.2 mmol/L (3.4-5.0)
[2018-11-25 07:24] VITALS: BP 142/79; PULSE 94; TEMP 99.2
[2018-11-25 07:34] LABS: BAND 4 % (0-10); LYMPHOCYTE 16 % (20.0-51.0); NEUTROPHILS 67 % (42.0-75.2); PLATELET ESTIMATE NORMAL (NORMAL)
[2018-11-25 07:35] LABS: HYPOCHROMIA 1+
[2018-11-25] MEDS ORDERED: CLEOCIN HCL300 MG PO (07:59)
[2018-11-25] MEDS ORDERED: LEVAQUIN 750MG750 M1 PO (07:59)
--- NOTE | 2018-11-25 08:49 | NUR ---
Patient sitting in bed with significant other at bedside, eating breakfast. Denies pain, SOB, dizziness, chest pain. Right lateral side sutures intact, no redness. Chest tube dressing intact, needs to be changed today before discharge. Right lateral lower side gauze covering skin tears from removal of tape that secured chest tube. Radial pulses strong bilaterally. Lungs diminished on right side. Left lower CTA. Bowel sounds present X4. Heart RRR. No other needs. Awaiting discharge.
[2018-11-25] MEDS ORDERED: PROAIR HFA0.09 MG/AC IH (08:57)
[2018-11-25] MEDS ORDERED: RESTORIL 77.5 MG/CAP PO (09:00)
--- NOTE | 2018-11-25 11:14 | NUR ---
Patient will discharge home today. No discharge needs.
--- NOTE | 2018-11-25 12:17 | NUR ---
Patient discharged. Discharge instructions and education reviewed. All questions answered. Chest tube dressing changed. Site is CDI. No redness or drainage. Patient ambulated out with significant other at side. No other needs at this time.
[2018-11-25 12:25] VITALS: BP 136/79; PULSE 89; TEMP 97.7
== END 2018-11-25 12:00 | disposition home or self-care (01) | DRG 853 ==
LOC: IMCU 23:30 → ICU 11-19 00:03 → MEDICAL 11-23 17:13
PROVIDERS: Internal Medicine; Nurse Practitioner Family; Surgery; ADMIT Internal Medicine
PROC: 02HV33Z Insertion of Infusion Device into Superior Vena Cava, Percutaneous Approach (ICD-10-PCS; 2018-11-19)
PROC: 0W9940Z Drainage of Right Pleural Cavity with Drainage Device, Percutaneous Endoscopic Approach (ICD-10-PCS; principal; 2018-11-19 14:45)
DX: A41.9 Sepsis, unspecified organism (principal); J96.01 Acute respiratory failure with hypoxia; J86.9 Pyothorax without fistula; J96.02 Acute respiratory failure with hypercapnia; Z68.41 Body mass index [BMI] 40.0-44.9, adult; E44.1 Mild protein-calorie malnutrition; I10 Essential (primary) hypertension; E66.01 Morbid (severe) obesity due to excess calories; G47.33 Obstructive sleep apnea (adult) (pediatric); K26.9 Duodenal ulcer, unspecified as acute or chronic, without hemorrhage or perforation; E87.6 Hypokalemia; R33.9 Retention of urine, unspecified; F32.9 Major depressive disorder, single episode, unspecified; E83.42 Hypomagnesemia; D64.9 Anemia, unspecified; F41.9 Anxiety disorder, unspecified; Z88.6 Allergy status to analgesic agent; Z99.81 Dependence on supplemental oxygen; Z98.84 Bariatric surgery status
CPT/HCPCS: 99223-AI; 99232-AI; 99233-AI; 99239; A7041; C1751; J0171; J0690; J1100; J1170; J1450; J1650; J1956; J2060; J2185; J2270; J2370; J2405; J2704; J2710; J3010; J3370; J7030; J7040; J7050; J7120

== ENCOUNTER → 2018-12-02 | Outpatient (CLI) | payer MEDICARE, MEDICAID ==
[~2018-12-02] MED LIST changes: +CLEOCIN HCL300 MG PO; +LEVAQUIN 750MG750 M1 PO; +LIORESAL 1010 MG/TAB PO; +MULTIPLE VITAMI1 CAP PO; +NATURAL IRON65 MG PO; +NEURONTIN800 MG/TAB PO; +PRIL40 PO; +PROAIR HFA0.09 MG/AC IH; +REQUIP 1MG T1 MG/TAB PO; +RESTORIL 1515 MG/CAP PO; +RESTORIL 77.5 MG/CAP PO; +VITAMIN B125000 MCG PO; +ZANTAC 150MG T150 MG PO; +ZESTRIL 20MG TA20 MG PO
[2018-12-02 12:08] LABS: BASO % 0.4 % (0.0-2.0); EOS # 0.2 (0.0-0.7); EOS % 2.1 % (0-4.0); GRAN # 7.2 (1.4-6.5); GRAN % 71.5 % (42.2-75.2); HEMOGLOBIN 10.3 g/dl (13.5-18.0); LYMPH # 1.6 (1.2-3.4); LYMPH % 15.5 % (20.0-51.0); MEAN CELL VOLUME 104 fl (80.0-100.0); MEAN CORPUSCULAR HEMOGLOBIN 33 pg (27.0-31.0); MEAN CORPUSCULAR HGB CONC 32 g/dl (33.0-37.0); MEAN PLATELET VOLUME 8.8 fl (7.4-10.4); MONO % 9.8 % (1.7-9.3); PLATELET COUNT 402 K/mm3 (130-400); RED BLOOD COUNT 3.15 M/mm3 (4.20-5.60); REDCELL DISTRIBUTION WIDTH-CV 12.3 % (11.5-14.5)
[2018-12-02 12:09] LABS: HEMATOCRIT 32.6 % (42.0-52.0)
[2018-12-02 12:17] LABS: ALBUMIN 3.1 gm/dL (3.5-5.0); BILIRUBIN,TOTAL 0.4 mg/dL (0.0-1.0); C-REACTIVE PROTEIN 5.2 mg/dL (0.0-0.9); CALCIUM 8.6 mg/dL (8.4-10.2); CREATININE, serum 1.27 (0.66-1.25); POTASSIUM 4.3 mmol/L (3.4-5.0); TOTAL PROTEIN 6.7 gm/dL (6.4-8.2)
[2018-12-02 12:29] LABS: ERYTHROCYTE SEDIMENTATION RATE > 140 mm/hr (0-15)
== END ==
LOC: COL.LAB 11:34
PROVIDERS: Family Medicine
DX: J86.9 Pyothorax without fistula (principal)

== ENCOUNTER → 2018-12-09 | Outpatient (CLI) | payer MEDICARE, MEDICAID ==
[2018-12-09 09:00] LABS: BASO % 0.2 % (0.0-2.0); EOS # 0.1 (0.0-0.7); EOS % 1.3 % (0-4.0); GRAN # 5.3 (1.4-6.5); LYMPH # 2.2 (1.2-3.4); LYMPH % 25.3 % (20.0-51.0); MEAN CELL VOLUME 98 fl (80.0-100.0); MEAN CORPUSCULAR HEMOGLOBIN 32 pg (27.0-31.0); MEAN CORPUSCULAR HGB CONC 32 g/dl (33.0-37.0); MEAN PLATELET VOLUME 8.4 fl (7.4-10.4); MONO # 0.9 (0.1-0.6); MONO % 10.7 % (1.7-9.3); PLATELET COUNT 336 K/mm3 (130-400); RED BLOOD COUNT 3.15 M/mm3 (4.20-5.60); REDCELL DISTRIBUTION WIDTH-CV 12.9 % (11.5-14.5)
[2018-12-09 09:15] LABS: ALBUMIN 3.2 gm/dL (3.5-5.0); BILIRUBIN,TOTAL 0.5 mg/dL (0.0-1.0); C-REACTIVE PROTEIN 3.2 mg/dL (0.0-0.9); CALCIUM 8.8 mg/dL (8.4-10.2); CREATININE, serum 1.02 (0.66-1.25)
[2018-12-09 09:27] LABS: ERYTHROCYTE SEDIMENTATION RATE 95 mm/hr (0-15)
== END ==
LOC: COL.LAB 08:33
PROVIDERS: Family Medicine
DX: J86.9 Pyothorax without fistula (principal); I10 Essential (primary) hypertension

== ENCOUNTER → 2018-12-16 | Outpatient (CLI) | payer MEDICARE, MEDICAID ==
[2018-12-16 09:53] LABS: BASO % 0.4 % (0.0-2.0); EOS # 0.2 (0.0-0.7); EOS % 2.1 % (0-4.0); GRAN # 4.5 (1.4-6.5); HEMOGLOBIN 10.1 g/dl (13.5-18.0); LYMPH # 1.9 (1.2-3.4); LYMPH % 25.4 % (20.0-51.0); MEAN CELL VOLUME 99 fl (80.0-100.0); MEAN CORPUSCULAR HEMOGLOBIN 31 pg (27.0-31.0); MEAN CORPUSCULAR HGB CONC 32 g/dl (33.0-37.0); MEAN PLATELET VOLUME 8.7 fl (7.4-10.4); MONO # 0.7 (0.1-0.6); MONO % 9.7 % (1.7-9.3); PLATELET COUNT 271 K/mm3 (130-400); RED BLOOD COUNT 3.26 M/mm3 (4.20-5.60); REDCELL DISTRIBUTION WIDTH-CV 13.2 % (11.5-14.5)
[2018-12-16 09:54] LABS: HEMATOCRIT 32.1 % (42.0-52.0)
[2018-12-16 10:07] LABS: ALBUMIN 3.4 gm/dL (3.5-5.0); BILIRUBIN,TOTAL 0.4 mg/dL (0.0-1.0); C-REACTIVE PROTEIN 1.5 mg/dL (0.0-0.9); CALCIUM 8.8 mg/dL (8.4-10.2); CREATININE, serum 0.95 (0.66-1.25); POTASSIUM 4.6 mmol/L (3.4-5.0); TOTAL PROTEIN 7.3 gm/dL (6.4-8.2)
[2018-12-16 10:08] LABS: ERYTHROCYTE SEDIMENTATION RATE 86 mm/hr (0-15)
== END ==
LOC: COL.LAB 09:30
PROVIDERS: Family Medicine
DX: J86.9 Pyothorax without fistula (principal)

== ENCOUNTER → 2019-02-03 | Outpatient (CLI) | payer MEDICARE, MEDICAID | LOC: MHCPAIN 09:05 | DX: G89.29 Other chronic pain (principal); M79.2 Neuralgia and neuritis, unspecified | CPT/HCPCS: G0463 ==

== ENCOUNTER → 2019-03-21 | Outpatient (CLI) | payer MEDICARE, MEDICAID ==
[2019-03-22 00:27] LABS: RHEUMATOID FACTOR-SCREEN <15 IU/mL (0-29)
== END ==
LOC: COL.LAB 09:50
PROVIDERS: Internal Medicine Pulmonary Disease
DX: I27.20 Pulmonary hypertension, unspecified (principal)

== ENCOUNTER → 2019-04-01 | Outpatient (CLI) | payer MEDICARE, MEDICAID | LOC: COL.VAS 09:12 | DX: I27.20 Pulmonary hypertension, unspecified (principal) ==

== ENCOUNTER → 2019-04-01 | Outpatient (CLI) | payer MEDICARE, MEDICAID | LOC: ZCOL.LAB 16:11 | DX: J02.9 Acute pharyngitis, unspecified (principal) ==

== ENCOUNTER → 2019-08-05 | Outpatient (CLI) | payer MEDICARE, MEDICAID | LOC: MHCPAIN 11:04 | DX: M79.2 Neuralgia and neuritis, unspecified (principal); R10.9 Unspecified abdominal pain | CPT/HCPCS: G0463 ==

== ENCOUNTER → 2020-01-19 | Outpatient (CLI) | payer MEDICARE, MEDICAID | LOC: COL.RAD 08:25 | DX: K44.9 Diaphragmatic hernia without obstruction or gangrene (principal); R16.0 Hepatomegaly, not elsewhere classified; N20.0 Calculus of kidney; Z98.84 Bariatric surgery status; Z90.49 Acquired absence of other specified parts of digestive tract | CPT/HCPCS: Q9967 ==

== ENCOUNTER → 2021-12-21 | Outpatient (CLI) | payer MEDICARE, MEDICAID | LOC: MHCPAIN 08:52 | DX: M79.18 Myalgia, other site (principal); M79.2 Neuralgia and neuritis, unspecified; R10.84 Generalized abdominal pain | CPT/HCPCS: G0463 ==